=== PATIENT | female | born 1940 | race Caucasian/White ===

== ENCOUNTER 2016-12-11 23:37 | Emergency (ER) | payer MEDICARE ==
--- NOTE | 2016-12-12 00:13 | ERNOTE ---
Chest Pain/Cardiac HPI Chief Complaint: Palpitations Time Seen by Provider: 12/12/16 00:07 Source: patient Exam Limitations: no limitations Immunizations: IMMUNIZATION HX Immunizations Up to Date Yes History of Influenza Vaccine Yes Allergies/Adverse Reactions: Allergies Sulfa (Sulfonamide Antibiotics) Adverse Reaction (Mild, Verified 12/11/16 23:55) RASH Home Medications: HOME MEDICATIONS Calcium Carbonate/Vitamin D3 [Caltrate-600 with Vit D Tab] 1 each PO BID [Last Taken Unknown] Ferrous Sulfate [Iron] 325 mg PO DAILY 04/03/14 [Last Taken Unknown] Levothyroxine Sodium [Levoxyl] 100 mcg PO DAILY 04/03/14 [Last Taken Unknown] Losartan Potassium [Cozaar] 50 mg PO DAILY 04/03/14 [Last Taken Unknown] Narrative: Patient had just gone to bed when she started to feel her heart beating fast, she had 'heartburn' with it. Symptoms resolved after 20minutes, returned briefly and had not returned since, no other associated symptoms Date (Duration): 12/11/16 Time (Timing): 22:30 Timing: intermittent Chest Pain Radiation: no radiation Activities at Onset: rest Review of Systems - Review of Systems Constitutional: Absent: recent illness, fever, chills ENT: Absent: nose congestion, sore throat Respiratory: Absent: shortness of breath Cardiology: Absent: chest pain Gastrointestinal/Abdominal: Present: nausea. Absent: vomiting, diarrhea, abdominal pain Genitourinary: Present: no symptoms reported Neurological: Absent: headache - Patient's Past Medical History Patient History - Medical: GERD, Hypothyroidism Patient History - Cardiac/Respiratory: Hypertension Patient History - Cancer: No Hx of Cancer Patient History - Surgical Procedures: Appendectomy Patient History - Other: None - Social History Living Situations: home Smoking Status: Never smoker Patient requests Smoking Cessation Consult: No Initiate information on Smoking Cessation: No Alcohol Use: none Drug Use: none - Immunizations Immunizations Up to Date: Yes History of Influenza Vaccine: Yes Physical Exam - Physical Exam General Appearance: Present: wd/wn, alert, no apparent distress Ears, Nose, Throat: Present: normal ENT inspection, normal pharynx Neck: Present: normal inspection Respiratory: Present: no respiratory distress, normal breath sounds, no accessory muscle use, lungs clear Cardiovascular/Chest: Present: regular rate, rhythm, no murmur Gastrointestinal/Abdominal: Present: nontender Extremity Exam: Present: no edema Neurological Exam: Present: alert, oriented, normal mood/affect Skin Exam: Present: normal color, warm/dry ED Progress - Results and Orders Patient's Lab Results:: I have reviewed the patient's lab results. - Vital Signs Patient's Vital Signs:: I have reviewed the patient's vital signs. Vital Signs: Vital Signs 12/11/16 23:48 Temperature 37 C Pulse Rate 82 Respiratory 16 Rate Blood Pressure 143/86 O2 Sat by Pulse 97 Oximetry - EKG EKG: NSR, other - no acute changes EKG read: Interp. by me - X-Ray X-Ray #1 X-Ray: chest - hyperinflated, no acute findings Interpretation: Interp. by me - Progress/Reassessment Chief Complaint: Palpitations Progress Note-Subjective: 12/12/16 01:26 discussed the test results with patient and and that hemoglobin and platelets have been trending down Departure - Departure Clinical Impression: Palpitations, Pancytopenia Disposition: Home self-care Condition: Good Instructions: Palpitations, [id number] Additional Instructions: your red blood cells and platelets are low call Dr Powell tomorrow for a follow up appointment and make sure to address the blood abnormalities Referrals: Nova Powell MD [Primary Care Provider] -
[2016-12-12 00:16] LABS: Prothrombin Time (Patient) 10.4 Seconds (9.4-11.4)
[2016-12-12 00:23] LABS: Partial Thrombolplastin Time 22.9 Seconds (24-32); Troponin I Less than 0.017 ng/ml (0.00-0.10)
[2016-12-12 00:31] LABS: ALT 18 U/L (19-67); AST 10 U/L (0-48); Albumin * 3.8 gm/dl (3.4-5.0); Alkaline Phosphatase * 58 U/L (50-170); Anion Gap 12.1 mmol/L (6.8-13.8); BUN/Creatinine Ratio 30.5 (9.0-21.6); Bilirubin, Total 0.5 mg/dL (0.0-1.1); Blood Urea Nitrogen 25 mg/dL (3-23); Ca. Corrected For Albumin 9.1 mg/dL (8.4-10.2); Calcium * 9.3 mg/dL (7.9-10.9); Carbon Dioxide 30.8 mmol/L (24-32.6); Chloride 104 mmol/L (97-106); Glucose * 111 mg/dL (70-110); Potassium 3.9 mmol/L (3.4-4.6); Sodium 143 mmol/L (132-142); Total Protein 6.9 gm/dL (6.2-8.2)
[2016-12-12 01:06] LABS: Hematocrit 28.6 % (37.0-47.0); Hemoglobin 9.4 gm/dL (12.5-16.0); Mean Cell Volume 83.9 fl (78-100); Mean Corpuscular Hemoglobin 27.6 pg (27-31); Mean Corpuscular Hgb Conc 32.9 g/dl (32-36); Red Blood Count 3.41 M/mm3 (4.2-5.4); White Blood Count 4.1 K/mm3 (4.0-10.5)
[2016-12-12 01:07] LABS: Platelet Count 79 K/mm3 (150-450)
[2016-12-12 01:44] VITALS: BP 133/76
[2016-12-12 06:29] LABS: Total Cells Counted 100
[2016-12-12 06:50] LABS: Atypical (Reactive) Lymph 10 % (0-2); Eosinophil 2 % (0-3); Lymphocyte 43 % (20-51); Monocyte 9 % (0-9); Neutrophil 36 % (42-75); Neutrophil # 1.5 K/mm3 (1.3-6.0)
[2016-12-12 07:06] LABS: Anisocytosis 2+; Basophilic Stippling 1+; Poikilocytosis 4+; Schistocytes 2+; Target Cells Trace
[2016-12-12 07:07] LABS: Platelet Estimate Decreased (NORMAL); Tear Drop Cells 1+
--- NOTE | 2016-12-12 08:43 | PATHPSR ---
PHYSICIAN: Nova Powell MD LAB#: [id number] SPECIMEN DATE: 12/12/2016 CLINICAL INFORMATION: Patient is a 75-year-old white woman who has a history of hypertension and hypothyroidism. Patient presents to the emergency room with palpitations and CBC at that time shows anemia (Hct 28.6) a peripheral smear evaluation has been ordered. The patient is referred to Dr. Powell for workup of the anemia. Also has elevated TSH of 5.5 uIU/ml CBC: WBC 4.1 K/mm3, hemoglobin 9.4 gm/dl, hematocrit 20.6 %, MCV is 83.9 fl, MCH is 27.6 pg, MCHC is 32.9 g/dl, Platelet count 79,000. Manual differential: Neutrophils 36 %, bands 0 %, lymphocytes 43 %, monocytes 9 %, eosinophils 2 %, basophils 0 %, atypical reactive lymphocytes 10%. RED BLOOD CELLS: Anemia with 2+ RBC fragments/histiocytes and 1+ acanthocytes PLATELETS: Thrombocytopenia WHITE BLOOD CELLS: Relative lymphocytes with atypical lymphocytes DIAGNOSIS: PERIPHERAL BLOOD SMEAR, REVIEW BY PATHOLOGIST: -ANEMIA AND THROMBOCYTOPENIA -RELATIVE LYMPHOCYTOSIS WITH SOME ATYPICALITY COMMENT: Evaluation of this patient's etiology of cytopenias by a mesh cutter with possible bone marrow examination is suggested. Preliminary testing to evaluate for possible hemolytic changes (haptoglobin pending). The patient does have mild folate deficiency (8.4 ng/ml), Iron and B-12 studies are normal. The findings are discussed with Dr. Powell on 12/12/2016 and report is faxed.
== END 2016-12-12 01:36 | disposition home or self-care (01) ==
LOC: ER 23:37
DX: D61.818 Other pancytopenia (principal); R00.2 Palpitations; D64.9 Anemia, unspecified; I10 Essential (primary) hypertension